=== PATIENT | female | born 1935 | race Caucasian/White ===

== ENCOUNTER 2016-10-19 10:12 | Outpatient (CLI) ==
--- NOTE | 2016-10-23 09:19 | MAMMO ---
EXAM: Bilateral digital screening mammogram History: Screening Comparison: Bilateral mammogram 11/18/2011 Findings: MLO and CC views of bilateral breasts demonstrate predominately fatty replaced breast par enchyma. Stable benign nodules within the right breast. There are no developing masses and no susp icious microcalcifications. Impression: Benign stable mammogram. Recommend followup routine screening mammography in 1 year. BIRADS 2
== END 2016-10-19 10:13 | disposition home or self-care (01) ==
LOC: RAD 10:12
PROVIDERS: ATTEND Family Medicine
DX: Z12.31 Encounter for screening mammogram for malignant neoplasm of breast (principal)

== ENCOUNTER 2017-11-23 09:04 | Outpatient (CLI) | payer OTHER ==
--- NOTE | 2017-11-23 13:37 | DEXA ---
Exam: Bone densitometry DEXA scan performed on the [employer]. Comparison: 06/25/2015. Reason for exam: Osteoporosis. FINDINGS: Imaging was obtained of the lumbar spine and deemed to be adequate for interpretation. Total BMD of the lumbar spine measures 0.971 grams per centimeter squared T-score -1.7. Z-score 0.2 WHO classification suggest osteopenia. Imaging was obtained of the left hip and deemed to be adequate for interpretation. BMD of the left femoral neck measures 0.657 grams per centimeter squared T-score -2.7. Z-score -0.5 WHO classification suggest osteoporosis. Impression: 1. WHO classification suggest osteopenia in the lumbar spine with osteoporosis in the left femoral n mitch. 2. WHO fracture risk assessment tool (FRAX) 10-year fracture risk percentage Major osteoporotic fracture risk over 10 years. 30.7%. Hip fracture risk over 10 years. 11.1%.
--- NOTE | 2017-11-24 10:44 | MAMMO ---
EXAM: Digital screening mammogram with tomosynthesis HISTORY: Screening COMPARISON: 10/19/2016 FINDINGS: Digital MLO and CC views of the right and left breast were performed. Tomosynthesis was performed. Computer aided detection utilized. There are scattered fibroglandular densities. Stable benign right breast lymph node. Benign bilateral calcifications. There is no evidence for mass, asym metry, distortion, or suspicious calcifications in either breast. IMPRESSION: 1. No evidence of malignancy in the right or left breast. 2. Annual screening mammogram is recommended in one year. BIRADS category 2, benign
== END 2017-11-23 09:05 | disposition home or self-care (01) ==
LOC: RAD 09:04
PROVIDERS: ATTEND Family Medicine
DX: Z12.31 Encounter for screening mammogram for malignant neoplasm of breast (principal); M81.0 Age-related osteoporosis without current pathological fracture
CPT/HCPCS: 77067

== ENCOUNTER 2017-11-26 07:58 | Outpatient (CLI) ==
[2017-11-26 08:25] VITALS: BP 161/88; TEMP 98.2
[2017-11-26] MEDS ORDERED: PROLIA SUBCUT STA (08:29)
== END 2017-11-26 07:59 | disposition home or self-care (01) ==
LOC: OPMED 07:58
PROVIDERS: ATTEND Family Medicine
DX: M81.0 Age-related osteoporosis without current pathological fracture (principal)
CPT/HCPCS: 96372

== ENCOUNTER 2018-12-06 10:54 | Outpatient (CLI) ==
--- NOTE | 2018-12-07 09:52 | MAMMO ---
EXAM: Bilateral digital screening mammogram (2-D and 3-D) History: Screening Comparison: Bilateral mammogram 11/23/2017 Findings: MLO and CC views of bilateral breasts demonstrate predominately fatty replaced breast pare nchyma. CAD was reviewed by the radiologist. Tomosynthesis was performed. Stable benign right shawn st nodules. There are no developing masses, no suspicious microcalcifications and no architectural d istortions Impression: Benign stable mammogram. Recommend followup routine screening mammography in 1 year. BI-RADS 2, benign
== END 2018-12-06 10:55 | disposition home or self-care (01) ==
LOC: RAD 10:54
PROVIDERS: ATTEND Family Medicine
DX: Z12.31 Encounter for screening mammogram for malignant neoplasm of breast (principal)